=== PATIENT | male | born 1955 | race Caucasian/White ===

== ENCOUNTER → 2020-05-06 | Outpatient (CLI) | payer BC ==
--- NOTE | 2020-05-06 15:29 | Diagnostic Imaging Report ---
INDICATION: Pain and injury to the left knee. TIME OF EXAM: 2:34 PM. TECHNIQUE: Three views of the left knee were obtained. FINDINGS: The medial and lateral compartments are fairly well maintained. The patient appears to have a multipartite patella. The patellar fragment is distracted from the dominant patella laterally. The osseous densities are well-corticated. This appears chronic. No definite fracture or dislocation is identified. No significant joint effusion is detected. 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 An osseous density projects immediately posterior to the patella on the lateral view. No acute bony abnormality is detected. Dictated by: Dictated on workstation # [id number]
== END ==
LOC: RAD FS 14:19
PROVIDERS: ATTEND Nurse Practitioner
DX: M22.8X2 Other disorders of patella, left knee (principal)
CPT/HCPCS: 73562

== ENCOUNTER → 2020-12-09 | Outpatient (CLI) | payer MEDICARE ==
--- NOTE | 2020-12-09 08:56 | Diagnostic Imaging Report ---
INDICATION: Chronic left shoulder pain. TIME OF EXAM: 8:33 AM. TECHNIQUE: Three views of the left shoulder were obtained. FINDINGS: The glenohumeral and acromioclavicular alignment is normal. The acromiohumeral space is normal. There is some degenerative change and spurring at the acromioclavicular joint. IMPRESSION: Degenerative changes. No acute bony abnormality is detected. Dictated by: Dictated on workstation # [id number]
--- NOTE | 2020-12-09 08:56 | Diagnostic Imaging Report ---
Indication: Chronic right knee pain. Time of exam: 8:36 AM No prior studies are available for comparison. Alignment is normal. There is mild tricompartmental degenerative change. There is marginal osteophyte formation present. There is spurring of the tibial spines. No definite fracture, dislocation or effusion is identified. There is corticated osseous density adjacent to the medial distal femur which could be owing to prior MCL injury. Impression: Chronic changes. No acute bony abnormality is detected. Dictated by: Dictated on workstation # [id number]
== END ==
LOC: RAD FS 08:31
PROVIDERS: ATTEND Nurse Practitioner
DX: M19.012 Primary osteoarthritis, left shoulder (principal)
CPT/HCPCS: 73030; 73562